=== PATIENT | female | born 1975 | race Caucasian/White ===

== ENCOUNTER 2017-09-14 16:00 | Emergency (ER) | payer OTHER ==
[~2017-09-14] VITALS: Ht 157.5 cm; Wt 90.7 kg
[~2017-09-14 16:00] MED LIST: CIPRO500 MG PO; EFFEXOR XR75 MG PO; FLAGYL500 MG PO; IBUPROFEN 600600 M1 PO; LEVOTHYROXINE 0.15MG PO; LEVOTHYROXINE150 MCG PO; LEVSIN0.125 MG PO; NORTHERA100 MG PO; PREDNISONE 20 M20 MG PO; VITAMIN D50000 UNIT PO
[2017-09-14] MEDS ORDERED: PREDNISONE 10 M10 M1 PO (16:15)
[2017-09-14] MEDS ORDERED: PERCOCET 10-321 EACH PO (16:15)
[2017-09-14] MEDS ORDERED: HYDROCODONE-AP1 EAC6 PO (16:15)
[2017-09-14 17:03] LABS: HEMATOCRIT 41.4 % (37.0-47.0); HEMOGLOBIN 13.5 gm/dL (12.0-15.0); MCH 26.9 pg (26.0-34.0); MCHC 32.7 g/dL (28.0-37.0); MCV 82.3 fL (80.0-100.0); MPV 8.6 fl. (7.2-11.1); NUCLEATED RBCS 0 /100WBC; PLATELET COUNT* 325 thou/uL (150-400); RBC 5.03 mil/uL (4.20-5.00); RDW-CV 13.5 % (10.5-14.5)
[2017-09-14 17:12] LABS: CALCIUM 9.4 mg/dL (8.5-10.1); CREATININE 0.8 mg/dL (0.6-1.3); POTASSIUM 3.9 mmol/L (3.5-5.1)
[2017-09-14 17:15] LABS: APTT 29.2 Seconds (25.0-31.3)
[2017-09-14 17:17] LABS: ALBUMIN 3.7 g/dL (3.4-5.0); TOTAL BILIRUBIN 0.3 mg/dL (<0.1-1.0); TOTAL PROTEIN 8.5 g/dL (6.4-8.2)
[2017-09-14 17:23] LABS: ABSOLUTE LYMPHOCYTES 0.6 thou/uL (0.8-5.3); ABSOLUTE MONOCYTES 0.1 thou/uL (0.0-1.2); ABSOLUTE NEUTROPHILS 9.3 thou/uL (1.6-8.1); PLATELET ESTIMATE ADEQUATE
[2017-09-14 18:29] VITALS: BP 164/98
== END 2017-09-14 18:30 | disposition short-term general hospital (02) ==
LOC: M.ERS 16:00
PROVIDERS: Physician Assistant
DX: J95.830 Postprocedural hemorrhage of a respiratory system organ or structure following a respiratory system procedure (principal); Z98.890 Other specified postprocedural states; Z88.5 Allergy status to narcotic agent

== ENCOUNTER → 2017-09-23 | Outpatient (CLI) | payer OTHER ==
[~2017-09-23] MED LIST changes: +B-121000 MC2 PO; +HYDROCODONE-AP1 EAC6 PO; +PERCOCET 10-321 EACH PO; +PREDNISONE 10 M10 M1 PO; +SYNTHROID150 MCG PO; +TRAZODONE HCL100 MG PO; +VITAMIN D31000 UNI2 PO
== END ==
LOC: M.RAD 14:46
DX: Z12.31 Encounter for screening mammogram for malignant neoplasm of breast (principal)

== ENCOUNTER 2018-03-29 16:05 | Emergency (ER) | payer OTHER ==
[~2018-03-29] VITALS: Ht 154.9 cm; Wt 97.5 kg
[~2018-03-29 16:05] MED LIST changes: -B-121000 MC2 PO; -SYNTHROID150 MCG PO; -TRAZODONE HCL100 MG PO; -VITAMIN D31000 UNI2 PO
[2018-03-29] MEDS ORDERED: TRAZODONE HCL100 MG PO (16:20)
[2018-03-29] MEDS ORDERED: SYNTHROID150 MCG PO (16:20)
[2018-03-29] MEDS ORDERED: B-121000 MC2 PO (16:20)
[2018-03-29] MEDS ORDERED: VITAMIN D31000 UNI2 PO (16:21)
[2018-03-29] MEDS ORDERED: PREDNISONE 20 M20 MG PO (17:39)
[2018-03-29 17:50] VITALS: BP 175/57
== END 2018-03-29 17:52 | disposition home or self-care (01) ==
LOC: M.ERS 16:05
DX: M94.0 Chondrocostal junction syndrome [Tietze] (principal); E03.9 Hypothyroidism, unspecified; E66.01 Morbid (severe) obesity due to excess calories; Z68.41 Body mass index [BMI] 40.0-44.9, adult; Z98.890 Other specified postprocedural states; Z88.5 Allergy status to narcotic agent